=== PATIENT | female | born 1970 | race Caucasian/White ===

== ENCOUNTER 2025-06-10 17:32 | Emergency (ER) | payer OTHER, SELFPAY ==
--- OUTSIDE RECORDS SUMMARY | 2022-04-27 07:30 | XMS_ITS | Continuity of Care Document ---
Author Organization [facility] Address [address] [place] [address] Phone Care Team Providers Care Hearing Officer Name Role Phone Kapil Rock DMD Unavailable Unavailable Allergies, Adverse Reactions, Alerts Substance Reaction Status Criticality No Known Allergies Active No Inform ation Medications Medication Instructions Dosage Effective Dates (start - stop) Status Comments gabapentin 300 mg capsule take 1 capsule by oral route 3 times every day 300 MG - Active tramadol 50 mg tablet take 1 tablet by oral route every 6 hours as needed 50 MG - Active Lasix 20 mg tablet take 1 tablet by oral route 2 times every day 20 MG - Active Xanax 0.25 mg tablet take 1 tablet by oral route 3 times every day 0.25 MG - Active cyclobenzaprine 5 mg tablet take 1 tablet by oral route 3 times every day 5 MG - Active naproxen 250 mg tablet take 1 tablet by oral route 2 times every day with food 250 MG - Active pravastatin 10 mg tablet take 1 tablet by oral route every day 10 MG - Active loratadine 10 mg tablet take 1 tablet by oral route every day 10 MG - Active Ventolin HFA 90 mcg/actuation aerosol inhaler inhale 2 puff by inhalation route every 4 - 6 hours as needed - Active ibuprofen 800 mg tablet take 1 tablet by oral route every 8 hours with food 800 MG - No Longer Active penicillin V potassium 500 mg tablet take 1 tablet by oral route every 8 hours 500 MG - No Longer Active lorazepam 0.5 mg tablet take 2 tablet by oral route 3 times every day as needed 1 MG - No Longer Active Procedures Procedure Date Intraoral-complete Series (bw) Comp Oral Eval New/estab Patient 2021 Oral Hygiene Instruction Resin Three Surfaces Anterior 6 Resin Three Surfaces Anterior 6 Resin Two Surfaces Anterior Resin 4+ W/incis Angle Anterior 016 Intraoral-complete Series (bw) 16 Comp Oral Eval New/estab Patient 2015 Limited Oral Eval Advance Directives Directive Yes / No Effective Date File Name No Information Encounters Encounter Description Practice Location Reason(s) For Visit Diagnoses Date Provider Providers Copied on Encounter [facility], [address], [place], [id number], [place] tel:[phone] Dental Clinic Periodic exam (chief complaint) Encounter for screening for dental disorders [place] DMD Kapil. [address], [place], [id number], [place]. tel:[phone] [facility], [address] [place] [address], [id number], [place] tel:[phone] Dental Clinic Encounter for screening for dental disorders [place] DMD Reyna. [address], [place], [id number], [place]. tel:[phone] [facility], [address] [place] [address], [id number], [place] tel:[phone] Dental Clinic fillind (chief complaint)f illing (chief complaint) Encounter for screening for dental disorders [facility] Reyna. [address], [place], [id number], [place]. tel:[phone] [facility], [address] [place] [address], [id number], [place] tel:[phone] Dental Clinic DN (chief complaint)D N (chief complaint) Encounter for screening for dental disorders David DMD Reyna. [address] [place] [address], [place], [id number], [place]. tel:[phone] [facility], [address] [place] [address], [id number], [place] tel:[phone] Dental Clinic Dental Limited (chief complaint) Encounter for screening for dental disorders Filemon Poole. [address] [place] [address], [id number], [place]. tel:[phone] Family History Family Member Type Diagnosis Age At Onset Mother Problem (finding) Heart Disease Father Problem (finding) aneurysm of thoracic ao rta Father Problem (finding) Heart problems Father Problem (finding) Alive and well Payers Payer name Insurance type Covered democrat ID Kamille hudson(s) D Medicaid [facility] [id number] Social History Type Description Quantity Date Captured Comments Alcohol Use Details Unknown Caffeine Use Details Unknown Tobacco Use Status Moderate cigarette s moker (10-19 cigs/day) Smoking Status Heavy tobacco smoker Sex Female Sexual Orientation Don't Know Gender Identity Female Chief Complaint And Reason For Visit From encounter dated '04/27/2022 12:30'. Periodic exam (chief complaint) Reason For Referral Reason For Referral No Information Plan Of Treatment Date Type Action Status Goal PRAPARE ASSESSMENT. Due on N due Goal Colonoscopy. Due on due Goal Tdap. Due on due Goal Influenza vaccine. Due on No due Goal Zoster vaccine (). Due on due Goal Depression screening. Due on due Goal Lipid panel. Due on 022 due Goal Mammogram. Due on due Goal FOBT. Due on due History Of Present Illness Encounter Date Complaint History Of Prese nt Illness Periodic exam fillind filling DN DN [facility] Functional Status Date Functional Assessmen t No Information Instructions Date Instruction Additional Infor mation No Information Assessments Type Assessment Date No Information Patient Care Teams Name Effective Dates (start - stop) Status Members No Information
--- OUTSIDE RECORDS SUMMARY | 2025-05-28 09:00 | XMS_ITS | Encounter Summary ---
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 Role Phone Unavailable Primary Care Provider Unavailabl e Reason for Visit * ReasonCommentsOsteoporosisFollow-upPTH LAB Encounter Details DateTypeDepartmentCare Team (Latest Contact Info)Evauoeegnqu98/03/2025 9:00 AM ESTOffice Visit [facility] [address] [place] [address] Chemo Dwyer MD [address] [place] [address] Age-related osteoporosis without current pathological fracture (Primary Dx); Vitamin D deficiency; Hypercalciuria; Hyperparathyroidism , secondary, non-renal (HCC) Social History Tobacco UseTypesPacks/DayYears UsedDateSmoking Tobacco: Never Assessed CommentsUnknownSex and Gender InformationValueDate RecordedSex Assigned at Not on fileLegal RpoIwoxkv54/15/2023 6:51 PM EDTGender IdentityNot on fileSexual OrientationNot on filedocumented as of this encounter Last Filed Vital Signs Vital SignReadingTime TakenCommentsBlood Pressure--Ynepg614605/28/2025 8:51 AM EST Temperature--Respiratory Hept403707/29/2024 8:51 AM ESTOxygen Zcfolewekv79% 05/28/2025 8:51 AM ESTInhaled Oxygen Concentration--Wrkhbn441 kg (314 lb) 05/28/2025 8:51 AM RJYRypuvi467.6 cm (5' 4 )05/28/2025 8:51 AM ESTBody Mass Index53.9107/29/2024 8:51 AM ESTdocumented in this encounter Progress Notes * Chemo Dwyer MD - 05/28/2025 9:00 AM EST Images from the original note were not included. Aneta Gonsalez is a 55 y.o. female No ref. provider found presents with chief complaint of Osteoporosis and Follow-up (PTH LAB) HPI: IM : 05/2025 Follow-up visit 05/28/2025 for 24 hour urine calcium 569 ( 0-320), calcium 9.4, phosphorus 2.3 ( 25-4.5), magnesium 2.1, vitamin-D 16.3, PTH 116 ( 12-88), 24 hour urine creatinine 1.51, 24 hour urinesodium 149 ( 40-220). 04/2025 History of Present Illness The patient is a 55-year-old female who presents as a new patient referred by Dr. Evgeny Daniels for osteoporosis. She has a history of multiple toe fractures, which prompted a DEXA scan. She reports no fractures to her head, spine, or hip. She is not currently on any steroid or vitamin D supplement. Results Imaging DEXA scan shows lumbar 1.041, T-score 0; left femoral neck 0.541, T-score -2.6; right femoral neck 0.521, T-score -3. SUBJECTIVE: MEDICATIONS: Current Outpatient Medications Medication Instructions alendronate (FOSAMAX) 70 mg, Oral, Every 7 days, 1 tablet weekly on an empty stomach, remain upright for at least 30 minutes amLODIPine (Norvasc) 5 MG tablet Daily cyclobenzaprine (Flexeril) 5 MG tablet Take by mouth ergocalciferol (VITAMIN D-2) 1.25 mg, Oral, Weekly furosemide (Lasix) 20 MG tablet Take by mouth gabapentin (NEURONTIN) 300 mg, 3 times daily loratadine (Claritin) 10 MG tablet Take by mouth naproxen (EC NAPROSYN) 500 mg, 2 times daily with meals pravastatin (Pravachol) 5 MG split tablet No dose, route, or frequency recorded. traMADol (Ultram) 50 MG tablet Take by mouth valACYclovir (Valtrex) 500 MG tablet Take by mouth ALLERGIES: Allergies[1] Medical History[2] Surgical History[3] REVIEW OF SYMPTOMS: 14 POINT OF SYSTEM REVIEWED AND NEGATIVE OBJECTIVE: 03/08/2021 12:00 PM 04/09/2021 12:00 PM 07/09/2021 12:00 PM 09/02/2021 12:00 PM 12/14/2021 12:00 PM 05/12/2025 9:10 AM 05/28/2025 8:51 AM Vitals BMI 54.91 kg/m2 54.91 kg/m2 54.91 kg/m2 54.91 kg/m2 51.69 kg/m2 51.42 kg/m2 53.9 kg/m2 BSA (m2) 2.62 m2 2.62 m2 2.62 m2 2.62 m2 2.54 m2 2.53 m2 2.53 m2 Systolic 132 130 Diastolic 88 88 Heart Rate 70 99 SpO2 97 % 96 % Resp 16 18 Height (in) 5' 5 5' 5 5' 5 5' 5 5' 5 5' 5 5' 4 Weight (lb) 330 330 330 330 310.6 309 314 Visit Report Report Report Physical Exam Constitutional: Appearance: Normal appearance. She is normal weight. HENT: Head: Normocephalic and atraumatic. Right Ear: External ear normal. Nose: Nose normal. Mouth/Throat: Pharynx: Oropharynx is clear. Eyes: Extraocular Movements: Extraocular movements intact. Pupils: Pupils are equal, round, and reactive to light. Cardiovascular: Rate and Rhythm: Normal rate and regular rhythm. Pulmonary: Effort: Pulmonary effort is normal. Abdominal: General: Abdomen is flat. Palpations: Abdomen is soft. Musculoskeletal: General: Normal range of motion. Skin: General: Skin is warm. Neurological: General: No focal deficit present. Mental Status: She is alert. Psychiatric: Mood and Affect: Mood normal. Behavior: Behavior normal. ASSESSMENT AND PLAN: Assessment/Plan Diagnoses and all orders for this visit: Age-related osteoporosis without current pathological fracture - ergocalciferol (Vitamin D-2) 1.25 MG (84339 UT) capsule; Take 1 capsule (1.25 mg) by mouth 1 (one) time per week - alendronate (Fosamax) 70 MG tablet; Take 1 tablet (70 mg) by mouth every 7 (seven) days 1 tablet weekly on an empty stomach, remain upright for at least 30 minutes - Magnesium; Future - PTH, intact and calcium; Future - Renal function panel; Future - Vitamin D 25 hydroxy Total; Future I gave her multiple options we will start Fosamax once weekly. Vitamin D deficiency - ergocalciferol (Vitamin D-2) 1.25 MG (76373 UT) capsule; Take 1 capsule (1.25 mg) by mouth 1 (one) time per week - Vitamin D 25 hydroxy Total; Future Level 16 we will start 50,000 once a week Hypercalciuria We will start hydrochlorothiazide next visit. Hyperparathyroidism , secondary, non-renal (HCC) PTH high, calcium within normal limits most likely due to vitamin-D deficiency, we will replace 1st, no need for surgical intervention Follow up in about 6 months (around 11/26/2025). [1] No Known Allergies [2] No past medical history on file. [3] No past surgical history on file. documented in this encounter Plan of Treatment DateTypeDepartmentCare Team (Latest Contact Info)Pkqgeqttsso25/03/2026 9:10 AM EDTOffice Visit [facility] [place] [facility] [address] [place] [address] Chemo Dwyer MD [address] [place] [address] NameTypePriorityAssociated DiagnosesOrder ScheduleMagnesiumLabRoutine Age-related osteoporosis without current pathological fracture Expected: 05/28/2025 (Approximate), Expires: 05/28/2026PTH, intact and calcium LabRoutine Age-related osteoporosis without current pathological fracture Expected: 05/28/2025 (Approximate), Expires: 05/28/2026Renal function panelLab Routine Age-related osteoporosis without current pathological fracture Expected: 05/28/2025 (Approximate), Expires: 05/28/2026Vitamin D 25 hydroxy TotalLabRoutine Age-related osteoporosis without current pathological fracture Vitamin D deficiency Expected: 05/28/2025 (Approximate), Expires: 05/28/2026documented as of this encounter Visit Diagnoses Diagnosis Age-related osteoporosis without current pathological fracture- Primary Vitamin D deficiency Hypercalciuria Unspecified disorders of calcium metabolism Hyperparathyroidism , secondary, non-renal (HCC) Secondary hyperparathyroidism, non-renal documented in this encounter
[2025-06-10 17:59] VITALS: BP 152/82; PULSE 94; TEMP 36.6; O2SAT 96; BMI 53.7
--- NOTE | 2025-06-10 19:49 | ED.EXTPRO1 ---
HPI - Extremity Problem General Chief complaint: Extremity Problem, Nontraumatic Stated complaint: LEFT LEG FROM HIP DOWN FEELS LIKE IT WANTS TO EXPL Time Seen by Provider: 06/10/25 19:44 Source: patient Mode of arrival: Wheelchair History of Present Illness HPI Narrative: past history of sciatica 2 years ago. left side. Describes pain clinic treatment including nerve ablation. Also history of spinal stenosis and arthritis. Presents complaining of pain of her left hip and left foot. Describes an explosion like pain of the dorsum of her left foot with weight bearing. The pain then extends into her left hip. When not weight bearing the pain eases. No extremitye weakness. No loss of control of bowel or bladder. No fever or recent injury Related Data Home Medications ?Medication ?Instructions ?Recorded ?Confirmed amlodipine 5 mg tablet 5 mg PO DAILY 06/10/25 06/10/25 cyclobenzaprine 10 mg tablet 10 mg PO BID 06/10/25 06/10/25 furosemide 20 mg tablet (Lasix) 20 mg PO DAILY 06/10/25 06/10/25 gabapentin 600 mg tablet 600 mg PO TID 06/10/25 06/10/25 loratadine 10 mg tablet 10 mg PO DAILY 06/10/25 06/10/25 (Allerclear) naproxen 500 mg tablet,delayed 500 mg PO BID 06/10/25 06/10/25 release (EC-Naprosyn) pravastatin 10 mg tablet 10 mg PO DAILY 06/10/25 06/10/25 tramadol 50 mg tablet 50 mg PO Q6H 06/10/25 06/10/25 Allergies Allergy/AdvReac Type Severity Reaction Status Date / Time No Known Drug Allergies Allergy Verified 06/10/25 17:52 Review of Systems ROS Status of ROS 10 or more systems reviewed and unremarkable except as noted in history and below PFSH PFSH Social History Little interest or pleasure in doing things: not at all Feeling down, depressed, or hopeless: not at all Exam Constitutional Vital Signs, click to edit/add: Last Vital Signs Temp 97.9 F 06/10/25 17:59 Pulse 94 H 06/10/25 17:59 Resp 16 06/10/25 17:59 BP 152/82 H 06/10/25 17:59 Pulse Ox 96 06/10/25 17:59 Common normals: no apparent distress, oriented x3, no limitations, healthy appearing, alert and well nourished [facility] Common normals: normocephalic and head/scalp atraumatic Eye Common normals: EOMs intact bilaterally and conjunctivae normal Respiratory Common normals: normal respiratory effort, no retractions, no use of accessory muscles and clear to auscultation bilaterally Cardio Common normals: regular rate, regular rhythm, S1 normal heart sound and S2 normal heart sound GI Common normals: Normal to inspection, nondistended, normoactive bowel sounds present and soft to palpation Back & Pelvis Other: left SI tenderness. Left hip nontender Extremity Common normals: normal to inspection and full ROM Neuro Common normals: oriented x3, CN's II-XII intact bilaterally, moves all extremities, no focal motor deficits and no sensory deficits noted Psych Appearance: grossly normal Course Vital Signs Vital signs: Vital Signs Temperature 97.9 F 06/10/25 17:59 Pulse Rate 94 H 06/10/25 17:59 Respiratory Rate 16 06/10/25 17:59 Blood Pressure 152/82 H 06/10/25 17:59 Pulse Oximetry 96 06/10/25 17:59 Temperature 97.9 F 06/10/25 17:59 Pulse Rate 94 H 06/10/25 17:59 Respiratory Rate 16 06/10/25 17:59 Blood Pressure 152/82 H 06/10/25 17:59 Pulse Oximetry 96 06/10/25 17:59 MDM - Extremity (Nontraumatic) MDM Narrative Medical decision making narrative: past history of sciatica. Presents with worsening pain of the left lower ext. Describes pain dorsum of left foot and left leg. Has left SI tenderness. No fever or leg weakness. xray left hip with evidence of mild DJD. Patient treated wt cocktail of solumedrol, magnesium and dilaudid and is now feeling better and pain tolerable. Discharged home with [place] Lab Data Labs: Lab Results 06/10/25 Range/Units 20:19 WBC 8.6 (4.0-11.0) 10^3/uL RBC 4.75 (4.20-5.40) 10^6/uL Hgb 14.0 (12.0-16.0) g/dL Hct 41.5 (36.0-48.0) % MCV 87.4 (81.0-99.0) fL MCH 29.5 (26.7-34.0) pg MCHC 33.7 (29.9-35.2) g/dL RDW 13.1 (11.0-15.0) % Plt Count 344 (150-450) 10^3/uL MPV 9.3 L (9.5-13.5) fL Neut % (Auto) 51.1 (43.0-75.0) % Lymph % (Auto) 37.6 (20.5-60.0) % Whitfield % (Auto) 6.3 (1.7-12.0) % Eos % (Auto) 4.2 (0.9-7.0) % Baso % (Auto) 0.5 (0.2-2.0) % Neut # (Auto) 4.4 (1.4-6.5) 10^3/uL Lymph # (Auto) 3.2 (1.2-3.8) 10^3/uL Whitfield # (Auto) 0.5 (0.3-0.8) 10^3/uL Eos # (Auto) 0.4 (0.0-0.7) 10^3/uL Baso # (Auto) 0.0 (0.0-0.1) 10^3/uL Abs Immat Gran (auto) 0.03 (0.00-0.03) 10^3/uL Imm/Tot Granulo (auto) 0.3 (0.0-0.5) % ESR 31 H (<=30) mm/hr Sodium 139 (136-145) mmol/L Potassium 3.5 (3.5-5.1) mmol/L Chloride 104 (98-107) mmol/L Carbon Dioxide 28.4 (21.0-32.0) mmol/L Anion Gap 10.1 BUN 20.0 H (7.0-18.0) mg/dL Creatinine 0.83 (0.55-1.02) mg/dL Est GFR ( Amer) >60 (>=60 mL/min/1.73m^2) Est GFR (Non-Af Amer) >60 (>=60 mL/min/1.73m^2) BUN/Creatinine Ratio 24.1 Glucose 129 H (74-106) mg/dL Calcium 10.1 (8.5-10.1) mg/dL Total Bilirubin 0.4 (0.2-1.0) mg/dL AST 16 (15-37) U/L ALT 26 (14-59) U/L Alkaline Phosphatase 87 (46-116) U/L C-Reactive Protein <0.50 (<=0.50) mg/dL Total Protein 7.3 (6.4-8.2) g/dL Albumin 3.8 (3.4-5.0) g/dL Globulin 3.5 g/dL Albumin/Globulin Ratio 1.1 Discharge Plan Discharge Chief Complaint: Extremity Problem, Nontraumatic Clinical Impression: Left sided sciatica Patient Disposition: Home, Self-Care Prescriptions / Home Meds: No Action tramadol 50 mg tablet 50 mg PO Q6H gabapentin 600 mg tablet 600 mg PO TID naproxen [EC-Naprosyn] 500 mg tablet,delayed release (DR/EC) 500 mg PO BID loratadine [Allerclear] 10 mg tablet 10 mg PO DAILY amlodipine 5 mg tablet 5 mg PO DAILY pravastatin 10 mg tablet 10 mg PO DAILY cyclobenzaprine 10 mg tablet 10 mg PO BID furosemide [Lasix] 20 mg tablet 20 mg PO DAILY Print Language: Vietnamese Instructions: Sciatica (ED) Additional Instructions: follow up with your doctor within the next couple of days for recheck Referrals: YOVANNY IZAGUIRRE [Primary Care Provider, Family Practice] - 1 week
--- NOTE | 2025-06-10 19:52 | XR_ITS ---
The [address] [address] Patient Name: WISAM MICHEL MRN: [id number] date: 1970 Sex: F Assigned Patient Location: ER Current Patient Location: ER Accession/Order Number: [id number] Exam Date: 06/10/2025 19:59 Report Date: 06/10/2025 20:13 At the request of: LEILA ARTHUR MD Procedure: XR hip LT 2V w/ pelvis XR hip LT 2V w/ pelvis 06/10/2025 8:02 PM SIGNS AND SYMPTOMS: ^pain PROTOCOL: Frontal radiograph the pelvis with frontal and frog-leg views of the left hip COMPARISON: None FINDINGS: There is mild narrowing of the joint spaces of the hips. Degenerative changes are noted in the lower lumbar spine, sacroiliac joints, and symphysis pubis. There is no evidence of fracture or dislocation. XR/XR hip LT 2V w/ pelvis IMPRESSION: No fracture or dislocation. Degenerative changes are noted as above. Impression dictated by: Kyle Viveros M.D. 06/10/2025 8:13 PM Dictation Location: [place] [address] Electronically authenticated by: [id number] Y Date: 06/10/2025 20:13
[2025-06-10] MEDS: METHYLPREDNISOLONE SOD SUCC PF 125 MG/2 ML VIAL IVP (20:17)
[2025-06-10] MEDS: KETOROLAC TROMETHAMINE 30 MG/ML VIAL IVP (20:17)
[2025-06-10] MEDS: MAGNESIUM SULFATE IN WATER 2 GM/50 ML PREMIX IV (20:17)
--- OUTSIDE RECORDS SUMMARY | 2025-06-10 20:17 | XMS_ITS | Clinical Summary ---
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 Phone Evgeny Lujan DO Primary Care Provider [phone] Allergies No known active allergies Medications MedicationSigDispense QuantityRefillsLast FilledStart DateEnd DateStatus loratadine 10 mg tablet Take 10 mg by mouth as needed.Active NAPROXEN ORAL Take by mouth as needed.Active furosemide (LASIX) 20 mg tablet Take 20 mg by mouth as needed.Active potassium acetate She takes prn with the lasixActive buPROPion XL (WELLBUTRIN XL) 150 mg 24 hr tablet Take 150 mg by mouth once daily.Active LORazepam (ATIVAN) 0.5 mg tab Take 0.5 mg by mouth as needed.Active VALACYCLOVIR HCL (VALTREX ORAL) Take by mouth as needed. For coldsoresActive topiramate (TOPAMAX) 25 mg tablet take one tablet at bedtime for 3 days increase by one tab every 3 days until taking four tabs at bedtime as tolerated 120 tablet ctive Active Problems ProblemNoted DateDiagnosed DateSpinal stenosis, njoech3506/10/2013Radiculitis, mxboyrdzqso24/16/4962Tabxbxgzga84/16/2013 Family History Medical HistoryRelationCommentsaneuryms [Other]Fatherheart disease [Other]Father triple bypass surgeryDiabetesMaternal Auntaneuryms [Other]Maternal Grandfather DiabetesMotherheart disease [Other]Motherdouble bypass surgeryCancerPaternal AuntDiabetesPaternal Auntheart disease [Other]Paternal AuntStrokePaternal Grandfatherdeceasedheart disease [Other]Paternal GrandmotherRelationStatus CommentsFatherMaternal AuntMaternal GrandfatherMotherPaternal AuntPaternal GrandfatherPaternal Grandmother Social History Tobacco UseTypesPacks/DayYears UsedDateSmoking Tobacco: Every DayCigarettes Smokeless Tobacco: NeverAlcohol UseStandard Drinks/WeekCommentsYes0 (1 standard drink = 0.6 oz pure alcohol)on occasionsCommentsNoSex and Gender InformationValueDate RecordedSex Assigned at BirthNot on fileLegal SexFemale 04/24/2013 1:48 PM EDTGender IdentityNot on fileSexual OrientationNot on file Last Filed Vital Signs Vital SignReadingTime TakenCommentsBlood Qlhbbpdu682/9006/10/2013 1:01 PM EST Eqgjk859806/10/2013 1:01 PM ESTTemperature--Respiratory Rate--Oxygen Saturation-- Inhaled Oxygen Concentration--Uouznv967 kg (280 lb)06/10/2013 1:01 PM ESTverbal Height--Body Mass Index-- Plan of Treatment Health MaintenanceDue DateLast DoneCommentsAnxiety Lccwkjocl08/24/1988Depression Ahojibvjy37/24/1988HIV Nsrlgmfka79/24/1988Hepatitis C Ceypffwwx76/24/1988 DTaP,Tdap,Td Vaccine (1 - Tdap)1989Hepatitis B Vaccine (1 of 3 - 19+ 3- dose series)1989Cervical Cancer Uitbhwpaq23/24/1991Mammogram Screening 2010CT Yhhczixnfrdt74/24/2015Cologuard (FIT-DNA)2015Colonoscopy 2015Colorectal Cancer Kmkucevui98/24/2015Diabetes Nbzzjcskv49/24/2015Fecal Occult Blood2015Lipid Pzxikhqeg74/24/7833Vhynvjxlmmrzh89/24/2015 Pneumococcal Vaccine: 50+ (1 of 1 - PCV)02/17/2020Shingrix Vaccine (1 of 2) 02/17/2020Covid-19 Vaccine (1 - 2024- season)2025Influenza Vaccine (#1) [address] [place] [address] Care Teams Team MemberRelationshipSpecialtyStart DateEnd Date Evgeny Lujan DO [address] [place] [address] PCP - GeneralFamily Vdsxizvv95/30/13
--- OUTSIDE RECORDS SUMMARY | 2025-06-10 20:18 | XMS_ITS | Clinical Summary ---
Author Organization [facility] Address [address] [place] [address] Care Team Providers Care Tab Machine Operator Name Role Phone Unavailable Primary Care Provider Unavailabl e Allergies No known active allergies Medications MedicationSigDispense QuantityRefillsLast FilledStart DateEnd DateStatus gabapentin (Neurontin) 300 MG capsule Take 300 mg by mouth in the morning and 300 mg in the evening and 300 mg before bedtime.Active naproxen (EC Naprosyn) 500 MG EC tablet Take 500 mg by mouth in the morning and 500 mg in the evening. Take with meals. Do not crush, chew,or split.Active traMADol (Ultram) 50 MG tablet Take by mouthActive loratadine (Claritin) 10 MG tablet Take by mouthActive pravastatin (Pravachol) 5 MG split tablet Active amLODIPine (Norvasc) 5 MG tablet Take by mouth DailyActive valACYclovir (Valtrex) 500 MG tablet Take by mouthActive cyclobenzaprine (Flexeril) 5 MG tablet Take by mouthActive furosemide (Lasix) 20 MG tablet Take by mouthActive ergocalciferol (Vitamin D-2) 1.25 MG (44405 UT) capsule Indications:Age-related osteoporosis without current pathological fracture, Vitamin D deficiencyTake 1 capsule (1.25 mg) by mouth 1 (one) time per week 12 capsule ctive alendronate (Fosamax) 70 MG tablet Indications:Age-related osteoporosis without current pathological fractureTake 1 tablet (70 mg) by mouth every 7 (seven) days 1 tablet weekly on an empty stomach, remain upright for at least 30 minutes 12 tablet ctive Encounters DateTypeDepartmentCare AlczFzfoxoighzl46/03/2025 9:00 AM ESTOffice Visit [facility] [address] [place] [address] Chemo Dwyer MD Age-related osteoporosis without current pathological fracture (Primary Dx); Vitamin D deficiency; Hypercalciuria; Hyperparathyroidism , secondary, non-renal (HCC)05/28/2025amboo flowsheet [facility] [place] [facility] [address] [place] [address] Chemo Dwyer MD 05/12/2025 9:10 AM ESTOffice Visit [facility] [place] [facility] [address] [place] [address] Chemo Dwyer MD Age-related osteoporosis without current pathological fracture (Primary Dx); Vitamin D pwrpsduhgh45/17/2025amboo flowsheet [facility] [address] [place] [address] Chemo Dwyer MD from Last 3 Months Social History Tobacco UseTypesPacks/DayYears UsedDateSmoking Tobacco: Never Assessed CommentsUnknownSex and Gender InformationValueDate RecordedSex Assigned at Not on fileLegal OjkNizxzg54/15/2023 6:51 PM EDTGender IdentityNot on fileSexual OrientationNot on file Last Filed Vital Signs Vital SignReadingTime TakenCommentsBlood Gjasuhof775/8811 9:10 AM EST Iwnvk819505/28/2025 8:51 AM ESTTemperature--Respiratory Pyvq277607/29/2024 8:51 AM ESTOxygen Ukijbykdav04%05/28/2025 8:51 AM ESTInhaled Oxygen Concentration-- Rvhhio082 kg (314 lb)05/28/2025 8:51 AM PYEBybygx048.6 cm (5' 4 )05/28/2025 8:51 AM ESTBody Mass Index53.9107/29/2024 8:51 AM EST Plan of Treatment DateTypeDepartmentCare Team (Latest Contact Info)Omtzsfwadsa47/03/2026 9:10 AM EDTOffice Visit [facility] [address] [place] [address] Chemo Dwyer MD [address] [place] [address] Health MaintenanceDue DateLast DoneCommentsCT Qqucbcxbizhl1970Colonoscopy 1970Colorectal Cancer Ehgxdtmfe1970FIT-DNA1970FIT1970 FOBT1970 0096Qdigqtsibhdzt1970Pap Smear1991Cervical Cancer Olkxyssfc28/24/2000HPV/Fjriie4502/17/20003304Xanavrxfx27/24/2010COVID-19 Vaccine ( season)5010/17/2020, 09/19/2020Influenza Vaccine (#1)2025 Pneumococcal Vaccine: Pediatrics (0 to 5 Years) and At-Risk Patients (6 to 64 Years)Aged OutNo longer eligible based on patient's age to complete this topic Procedures Procedure NamePriorityDate/TimeAssociated DiagnosisCommentsCALCIUM, 24 HOUR URINE (W/O CREATININE)Bkaoawu5005/15/2025 1:39 PM EST Age-related osteoporosis without current pathological fracture VITAMIN D 25 HYDROXY ZUIFZAwofydq76/19/2025 12:54 PM EST Age-related osteoporosis without current pathological fracture CREATININE, 24 HOUR XKIVFPgtzwic97/19/2025 12:54 PM EST Age-related osteoporosis without current pathological fracture SODIUM W/O CREATININE, 24 HOUR NFLDXHqoomof23/19/2025 12:54 PM EST Age-related osteoporosis without current pathological fracture RENAL FUNCTION EAELCNwccvpy00/19/2025 12:54 PM EST Age-related osteoporosis without current pathological fracture PTH, INTACT WITHOUT SMLFXTBPxkhoxi29/19/2025 12:54 PM EST Age-related osteoporosis without current pathological fracture QGLMFKRBUCyyncyh38/19/2025 12:54 PM EST Age-related osteoporosis without current pathological fracture from Last 3 Months Results * Calcium, urine, 24 hour (05/15/2025 1:39 PM EST)Specimen (Source)Anatomical Location / LateralityCollection Method / VolumeCollection TimeReceived Time UrineUrine specimen obtained by clean catch procedure / Unknown Narrative Authorizing ProviderResult TypeResult StatusAd[facility] URINE ORDERABLESFinal ResultPerforming OrganizationAddressCity/State/ZIP CodePhone Number [facility] * Creatinine, urine, 24 hour (05/14/2025 12:54 PM EST)Specimen (Source) Anatomical Location / LateralityCollection Method / VolumeCollection Time Received TimeUrineUrine specimen obtained by clean catch procedure / Unknown Narrative Authorizing ProviderResult TypeResult [facility] URINE ORDERABLESFinal ResultPerforming OrganizationAddressCity/State/ZIP CodePhone Number [facility] * Sodium, urine, 24 hour (05/14/2025 12:54 PM EST)Specimen (Source)Anatomical Location / LateralityCollection Method / VolumeCollection TimeReceived Time UrineUrine specimen obtained by clean catch procedure / Unknown Narrative Authorizing ProviderResult TypeResult StatusAd[facility] URINE ORDERABLESFinal ResultPerforming OrganizationAddressCity/State/ZIP CodePhone Number [facility] * Vitamin D 25 hydroxy (05/14/2025 12:54 PM EST)Specimen (Source)Anatomical Location / LateralityCollection Method / VolumeCollection TimeReceived Time BloodVenous blood specimen / Unknown Narrative Authorizing ProviderResult TypeResult StatusAd[facility] BLOOD ORDERABLESFinal ResultPerforming OrganizationAddressCity/State/ZIP CodePhone Number [facility] * PTH, intact (05/14/2025 12:54 PM EST)Specimen (Source)Anatomical Location / LateralityCollection Method / VolumeCollection TimeReceived TimeBloodVenous blood specimen / Unknown Narrative Authorizing ProviderResult TypeResult StatusAd[facility] BLOOD ORDERABLESFinal ResultPerforming OrganizationAddressCity/State/ZIP CodePhone Number [facility] * Magnesium (05/14/2025 12:54 PM EST)Specimen (Source)Anatomical Location / LateralityCollection Method / VolumeCollection TimeReceived TimeBloodVenous blood specimen / Unknown Narrative Authorizing ProviderResult TypeResult StatusChemo Dwyer [facility] BLOOD ORDERABLESFinal ResultPerforming OrganizationAddressCity/State/ZIP CodePhone Number [facility] * Renal function panel (05/14/2025 12:54 PM EST)Specimen (Source)Anatomical Location / LateralityCollection Method / VolumeCollection TimeReceived Time BloodVenous blood specimen / Unknown Narrative Authorizing ProviderResult TypeResult Statusjudy Dwyer [facility] BLOOD ORDERABLESFinal ResultPerforming OrganizationAddressCity/State/ZIP CodePhone Number [facility] from Last 3 Months Insurance
--- OUTSIDE RECORDS SUMMARY | 2025-06-10 20:18 | XMS_ITS | Patient Health Record ---
Author Organization [facility] Address [address] [place] [address] Care Team Providers Care Manager Games Name Role Phone BhartiKris berg Primary Care Provider Reason For Referral No Information Immunizations Vaccine Route Administration Date Status Comme nts MODERNA IM Intramuscular 09/19/2020 Administered MODERNAIM Dlwejqwwhwybl04/24/2021dministered Plan Of Treatment No Information Insurance Providers Payer Name Payer Address Payer Phone Subscriber Number Group Number Insured Name Patient Relationship to Insured Coverage Start Date Coverage End Date [employer] [address] [place] [address] [id number] Brianna MARSHALL - patient is the [id number] 2020[facility] [employer] [address] [place] [phone] [id number] MARSHALL - patient is the [id number] 2020
--- OUTSIDE RECORDS SUMMARY | 2025-06-10 20:18 | XMS_ITS | Encounter Summary ---
Author Organization [facility] Address [address] [place] [address] Care Team Providers Care Foreign Correspondent Name Role Phone Unavailable Primary Care Provider Unavailabl e Encounter Details DateTypeDepartmentCare Team (Latest Contact Info)Qrtpydxssjr98/03/2025amboo flowsheet [facility] [address] [place] [phone] Chemo Dwyer MD [address] [place] [address] Social History Tobacco UseTypesPacks/DayYears UsedDateSmoking Tobacco: Never Assessed CommentsUnknownSex and Gender InformationValueDate RecordedSex Assigned at Not on fileLegal NwpYmwexl26/15/2023 6:51 PM EDTGender IdentityNot on fileSexual OrientationNot on filedocumented as of this encounter Plan of Treatment DateTypeDepartmentCare Team (Latest Contact Info)Nscmqwbrfys43/03/2026 9:10 AM EDTOffice Visit [facility] [address] [place] [address] Chemo Dwyer MD [address] [place] [address] documented as of this encounter Visit Diagnoses Not on filedocumented in this encounter
[2025-06-10 20:30] LABS: Hematocrit 41.5 % (36.0-48.0); Hemoglobin 14.0 g/dL (12.0-16.0); Immature Granulocytes Abs Auto 0.03 10^3/uL (0.00-0.03); Immature Granulocytes Pct Auto 0.3 % (0.0-0.5); Lymphocytes Absolute Auto 3.2 10^3/uL (1.2-3.8); Mean Corpuscular HGB Conc 33.7 g/dL (29.9-35.2); Mean Corpuscular Hemoglobin 29.5 pg (26.7-34.0); Mean Corpuscular Volume 87.4 fL (81.0-99.0); Platelet Count 344 10^3/uL (150-450); Red Blood Count 4.75 10^6/uL (4.20-5.40); White Blood Count 8.6 10^3/uL (4.0-11.0)
[2025-06-10 20:48] LABS: Alanine Aminotransferase 26 U/L (14-59); Albumin Globulin Ratio 1.1; Albumin Level 3.8 g/dL (3.4-5.0); Alkaline Phosphatase 87 U/L (46-116); Anion Gap 10.1; Aspartate Amino Transferase 16 U/L (15-37); Blood Urea Nitrogen 20.0 mg/dL (7.0-18.0); Calcium 10.1 mg/dL (8.5-10.1); Carbon Dioxide 28.4 mmol/L (21.0-32.0); Chloride 104 mmol/L (98-107); Estimated GFR (African America >60 (>=60 mL/min/1.73m^2); Estimated GFR (Non-African Ame >60 (>=60 mL/min/1.73m^2); Globulin 3.5 g/dL; Glucose 129 mg/dL (74-106); Potassium 3.5 mmol/L (3.5-5.1); Sodium 139 mmol/L (136-145); Total Protein 7.3 g/dL (6.4-8.2)
[2025-06-10] MEDS: HYDROMORPHONE HCL 1 MG/ML CARTRIDGE IVP (23:24)
== END 2025-06-11 00:08 | disposition home or self-care (01) ==
PROVIDERS: Emergency Provider Internal Medicine; PCP Family Medicine
DX: M54.32 Sciatica, left side (principal)
CPT/HCPCS: 36415; 73502; 80053; 85025; 85652; 86140; 96365; 96375; 99284; J1171; J1885; J2919; J3475